=== PATIENT | female | born 1990 | race Hispanic/Latino ===

== ENCOUNTER 2020-06-18 08:07 | Outpatient (CLI) | payer MEDICAID, OTHER ==
[2020-06-18 17:06] LABS: SARS-CoV-2 PCR by NAA Not Detected (NotDetected)
== END 2020-06-18 08:08 | disposition home or self-care (01) ==
LOC: CSHLAB 08:07
PROVIDERS: ATTEND Student in an Organized Health Care Education/Training Program
DX: Z20.822 Contact with and (suspected) exposure to COVID-19 (principal)
CPT/HCPCS: 87635; U0003; U0005

== ENCOUNTER 2020-06-21 08:55 | Day surgery (SDC) | payer MEDICAID, OTHER ==
[2020-06-21 09:48] VITALS: BMI 46.0
[2020-06-21] MEDS ORDERED: Iron Sucrose Complex 500 MG in Sodium Chloride 0.9% 250 ML 250 ML IVPB SCH (10:00)
[2020-06-21] MEDS ORDERED: Acetaminophen 500 MG TAB PO SCH (10:00)
[2020-06-21] MEDS ORDERED: diphenhydrAMINE 50 MG/ML VIAL IVP SCH (10:45)
[2020-06-21 10:50] VITALS: BP 143/74; TEMP 98.2
== END 2020-06-21 16:19 | disposition home or self-care (01) ==
LOC: CSHLD/OP 08:55
PROVIDERS: ATTEND Student in an Organized Health Care Education/Training Program
DX: O99.013 Anemia complicating pregnancy, third trimester (principal); D50.9 Iron deficiency anemia, unspecified; O99.281 Endocrine, nutritional and metabolic diseases complicating pregnancy, first trimester; E74.39 Other disorders of intestinal carbohydrate absorption; O09.291 Supervision of pregnancy with other poor reproductive or obstetric history, first trimester; Z3A.09 9 weeks gestation of pregnancy; Z90.79 Acquired absence of other genital organ(s)
CPT/HCPCS: 96361; 96365; 96366; 99283; J1756; J7050